=== PATIENT | female | born 1930 | race American Indian/Alaskan Native ===

== ENCOUNTER 2018-01-10 22:28 | Emergency (ER) | payer MEDICAID, MEDICARE, OTHER ==
[2018-01-10 22:51] VITALS: BMI 24.5
[2018-01-10 23:08] VITALS: TEMP 98.4
--- NOTE | 2018-01-10 23:16 | ED PDOC ---
Arrival/HPI - General Chief Complaint: Dizziness/Lightheaded Time Seen by Provider: 01/10/18 22:49 Historian: Patient - History of Present Illness Narrative History of Present Illness (Text): 01/10/18 23:19 An 87 year old female, whose past medical history includes hypertension, hypercholesterolemia and cataracts in bilateral eyes, presents to the emergency department complaining of dizziness. Patient reports dizziness began when she woke up from a nap around 21:00. Patient reports she feels like she is falling. Patient called her daughter, who brought her to the emergency department. Patient denies any other complaints at this time. Medications: Metoprolol, Lasix, hydrochlorothiazide Time/Duration: 1-3 hours Symptom Onset: Sudden Symptom Course: Unchanged Activities at Onset: Rest Context: Home Past Medical History - Provider Review Nursing Documentation Reviewed: Yes - Infectious Disease Hx of Infectious Diseases: None - Cardiac Hx Hypertension: Yes - Musculoskeletal/Rheumatological Hx Arthritis: Yes Hx Osteoporosis: Yes - Gastrointestinal Hx Diverticulitis: Yes - Psychiatric Hx Substance Use: No - Surgical History Other/Comment: HEMORRHOIDECTOMY - Suicidal Assessment Feels Threatened In Home Enviroment: No Family/Social History - Physician Review Nursing Documentation Reviewed: Yes Family/Social History: No Known Family HX Smoking Status: Never Smoked Hx Alcohol Use: No Hx Substance Use: No Allergies/Home Meds Allergies/Adverse Reactions: Allergies No Known Allergies Allergy (Verified 02/15/17 17:41) Home Medications: Home Meds Medication Instructions Recorded Confirmed Calcium + D 500 mg-125 Iu 1 tab PO DAILY 04/03/14 02/15/17 Furosemide 1 tab PO DAILY 04/03/14 02/15/17 Gabapentin 150 mg PO BID 04/03/14 02/15/17 Rosuvastatin Calcium [Crestor] 1 tab PO DAILY 04/03/14 02/15/17 Valsartan [Diovan] 1 tab PO DAILY 04/03/14 02/15/17 Ferrous Sulfate 325 mg PO DAILY 02/15/17 02/15/17 Risedronate Sodium [Actonel] 150 mg PO WM 02/15/17 02/15/17 Review of Systems - Physician Review All systems were reviewed & negative as marked: Yes - Review of Systems Constitutional: absent: Fevers Neurological: Dizziness Physical Exam Vital Signs Reviewed: Yes Vital Signs Temp Pulse Resp BP Pulse Ox 01/11/18 01:06 64 18 159/76 H 98 01/10/18 23:08 98.4 F 64 18 144/88 99 Temperature: Afebrile Blood Pressure: Normal Pulse: Regular Respiratory Rate: Normal Appearance: Positive for: Well-Appearing, Non-Toxic, Comfortable Pain Distress: None Mental Status: Positive for: Alert and Oriented X 3 - Systems Exam Head: Present: Atraumatic, Normocephalic Pupils: Present: Other (horizontal nystagmus) Extroacular Muscles: Present: EOMI Conjunctiva: Present: Normal Mouth: Present: Moist Mucous Membranes Neck: Present: Normal Range of Motion Respiratory/Chest: Present: Clear to Auscultation, Good Air Exchange. No: Respiratory Distress, Accessory Muscle Use Cardiovascular: Present: Murmurs (loud heart murmur 4/6, holosystolic, crescendo ) Abdomen: Present: Normal Bowel Sounds. No: Tenderness, Distention, Peritoneal Signs Back: Present: Normal Inspection Upper Extremity: Present: Normal Inspection. No: Cyanosis, Edema Lower Extremity: Present: Normal Inspection. No: Edema Neurological: Present: GCS=15, CN II-XII Intact, Speech Normal Skin: Present: Warm, Dry, Normal Color. No: Rashes Psychiatric: Present: Alert, Oriented x 3, Normal Insight, Normal Concentration Medical Decision Making ED Course and Treatment: 01/10/18 23:12 Impression: An 87 year old female with dizziness. Differential Diagnosis included but are not limited to: vertigo Plan: -- EKG -- CT head -- Chest X-ray -- labs -- Urinalysis -- Antivert -- Reassess and disposition Prior Visits: Notes and results from previous visits were reviewed. Patient was last seen in the emergency department on 02/15/17 for evaluation of headache. Progress Notes: EKG: Ordered, reviewed, and independently interpreted the EKG. Rate : 67 BPM Rhythm : NSR Interpretation : 1st degree block 01/11/18 01:39 Chest X-ray- No active disease, as read by me. 01/11/18 02:42 CT Head Without Intravenous Contrast FINDINGS: Brain:Periventricular white matter disease compatible with chronic small vessel ischemic change. There is intracerebral atherosclerosis.No acute intra or extra-axial hemorrhage. No mass or midline shift. Clear sinuses. No calvarial fracture. IMPRESSION: No intracranial hemorrhage. Dictated and Authenticated by: Tsering Plascencia MD 01/11/2018 2:41 AM Eastern Time ([place] & [place]) 01/11/18 02:43 On re-evaluation, patient feels better and is in no acute distress. I have discussed the results and plan with the patient, who expresses understanding. Patient in agreement with plan to be discharged home. Patient is stable for discharge. Patient was instructed to follow up with physician or return if symptoms worsen or new concerning symptoms arise. - Lab Interpretations Lab Results: 01/10/18 23:29 01/10/18 23:29 Lab Results 01/10/18 23:57: Urine Color Straw, Urine Appearance Sl cloudy, Urine pH 7.0, Ur Specific [place] 1.010, Urine Protein Negative, Urine Glucose (UA) Negative, Urine Ketones Negative, Urine Blood Negative, Urine Nitrate Negative, Urine Bilirubin Negative, Urine Urobilinogen 0.2, Ur Leukocyte Esterase Moderate H, Urine RBC 0 - 2, Urine WBC 2 - 5, Ur Epithelial Cells 0 - 2, Urine Bacteria Rare 01/10/18 23:29: Sodium 139, Potassium 3.9, Chloride 101, Carbon Dioxide 30, Anion Gap 12, BUN 16, Creatinine 0.7, Est GFR ( Amer) > 60, Est GFR (Non- Af Amer) > 60, Random Glucose 101, Calcium 10.2, Total Bilirubin 0.3, AST 42 H, ALT 25, Alkaline Phosphatase 69, Lactate Dehydrogenase 433, Total Creatine Kinase 84, Troponin I 0.01, Total Protein 7.0, Albumin 3.7, Globulin 3.3, Albumin/Globulin Ratio 1.1 01/10/18 23:29: PT 13.7 H, INR 1.20 H 01/10/18 23:29: WBC 6.3, RBC 3.88, Hgb 10.9 L, Hct 32.3 L, MCV 83.2, MCH 28.1, MCHC 33.7, RDW 14.8 H, Plt Count 239, MPV 8.1, Gran % 70.8 H, Lymph % (Auto) 22.8, [place] % (Auto) 4.0, Eos % (Auto) 2.1, Baso % (Auto) 0.3, Gran # 4.44, Lymph # (Auto) 1.4, [place] # (Auto) 0.3, Eos # (Auto) 0.1, Baso # (Auto) 0.02 I have reviewed the lab results: Yes - RAD Interpretation Radiology Orders: 01/10/18 23:07 HEAD W/O CONTRAST [CT] Stat CHEST PORTABLE [RAD] Stat - EKG Interpretation Interpreted by ED Physician: Yes Type: 12 lead EKG - Medication Orders Current Medication Orders: Discontinued Medications Meclizine HCl (Antivert) 25 mg PO STAT STA Stop: 01/10/18 23:10 Last Admin: 01/10/18 23:37 Dose: 25 mg - PA / DIRECTOR OF SOFTWARE ENGINEERING / Resident Statement MD/DO has reviewed & agrees with the documentation as recorded. - Scribe Statement The provider has reviewed the documentation as recorded by the Gary Shepherd Provider Scribe Attestation: All medical record entries made by the Gary were at my direction and personally dictated by me. I have reviewed the chart and agree that the record accurately reflects my personal performance of the history, physical exam, medical decision making, and the department course for this patient. I have also personally directed, reviewed, and agree with the discharge instructions and disposition. Disposition/Present on Arrival - Present on Arrival Any Indicators Present on Arrival: No History of DVT/PE: No History of Uncontrolled Diabetes: No Urinary Catheter: No History of Decub. Ulcer: No History Surgical Site Infection Following: None - Disposition Have Diagnosis and Disposition been Completed?: Yes Diagnosis: Vertigo Disposition: HOME/ ROUTINE Disposition Time: 02:47 Patient Plan: Discharge Patient Problems: Current Active Problems Problem Status Onset Vertigo Acute Condition: GOOD Discharge Instructions (ExitCare): Vertigo (a Type of Dizziness) (DC) Additional Instructions: Mrs Flores..... Please get up and lay down slowly, try to avoid rapid head motions. Return to us if worse. Use the Antivert 3 times a day. Follow up with your doctor later this week. Fritz- Dr. Dayne Chun Prescriptions: Meclizine [Antivert] 12.5 mg PO TID #30 tab Forms: [employer] (Moroccan)
[2018-01-10 23:53] LABS: BASO # 0.02 K/mm3 (0.0-2.0); BASO % 0.3 % (0.0-3.0); EOS # 0.1 (0.0-0.7); EOS % 2.1 % (1.5-5.0); GRAN # 4.44 (1.4-6.5); GRAN % 70.8 % (50.0-68.0); HEMOGLOBIN 10.9 g/dL (12.0-16.0); LYMPH # 1.4 (1.2-3.4); LYMPH % 22.8 % (22.0-35.0); MEAN CELL VOLUME 83.2 fl (80.0-105.0); MEAN CORPUSCULAR HEMOGLOBIN 28.1 pg (25.0-35.0); MEAN CORPUSCULAR HGB CONC 33.7 g/dl (31.0-37.0); MEAN PLATELET VOLUME 8.1 fl (7.0-11.0); MONO # 0.3 (0.1-0.6); RBC 3.88 10^6/uL (3.5-6.1); RED CELL DISTRIBUTION WIDTH 14.8 % (11.5-14.5); WHITE BLOOD COUNT 6.3 10^3/ul (4.5-11.0)
[2018-01-10 23:55] LABS: INR 1.2 (0.93-1.08); PROTHROMBIN TIME 13.7 SECONDS (9.4-12.5)
[2018-01-11 00:02] LABS: ALB/GLOB RATIO 1.1 (1.1-1.8); ALBUMIN 3.7 g/dL (3.0-4.8); ALT/SGPT 25 U/L (7-56); AST/SGOT 42 U/L (14-36); BLOOD UREA NITROGEN 16 mg/dL (7-21); CALCIUM 10.2 mg/dL (8.4-10.5); GFR AFRICAN-AMERICAN > 60; GFR NON-AFRICAN AMERICAN > 60
[2018-01-11 00:07] LABS: URINE BILIRUBIN NEGATIVE (NEGATIVE); URINE BLOOD NEGATIVE (NEGATIVE); URINE GLUCOSE (UA) NEGATIVE (NEGATIVE); URINE LEUKOCYTE ESTERASE MODERATE Leu/uL (NEGATIVE); URINE PROTEIN NEGATIVE mg/dL (<30 mg/dL); URINE UROBILINOGEN 0.2 E.U./dL (<1 E.U./dL)
[2018-01-11 00:10] LABS: URINE APPEARANCE SL CLOUDY (CLEAR); URINE COLOR STRAW (YELLOW)
[2018-01-11 00:13] LABS: TROPONIN I 0.01 ng/mL
[2018-01-11 00:38] LABS: URINE RBC 0 - 2 /hpf (0-2)
[2018-01-11 00:39] LABS: URINE EPITHELIAL CELLS 0 - 2 /hpf (0-5)
[2018-01-11 00:40] LABS: URINE BACTERIA RARE (NEG)
[2018-01-11 03:09] VITALS: BP 154/90; PULSE 66; RESP 17; O2SAT 99
--- NOTE | 2018-01-11 08:29 | CT ---
PROCEDURE: CT HEAD WITHOUT CONTRAST. HISTORY: DIZZY COMPARISON: None available. TECHNIQUE: Axial computed tomography images were obtained through the head/brain without intravenous contrast. Radiation dose: Total exam DLP = 783 mGy-cm. This CT exam was performed using one or more of the following dose reduction techniques: Automated exposure control, adjustment of the mA and/or kV according to patient size, and/or use of iterative reconstruction technique. FINDINGS: HEMORRHAGE: No intracranial hemorrhage. BRAIN: No mass effect or edema. No atrophy or chronic microvascular ischemic changes. VENTRICLES: Unremarkable. No hydrocephalus. CALVARIUM: Unremarkable. PARANASAL SINUSES: Unremarkable as visualized. No significant inflammatory changes. MASTOID AIR CELLS: Unremarkable as visualized. No inflammatory changes. OTHER FINDINGS: The report concurs with the preliminary [facility] report IMPRESSION: No acute findings
--- NOTE | 2018-01-11 08:58 | RAD ---
HISTORY: Weak and Dizzy COMPARISON: No prior. FINDINGS: LUNGS: No active pulmonary disease. PLEURA: No significant pleural effusion identified, no pneumothorax apparent. CARDIOVASCULAR: Minimal cardiomegaly. Mild tortuosity and ectasia of the thoracic aorta OSSEOUS STRUCTURES: Thoracic spondylosis. Bilateral shoulder arthrosis. High-riding humeral heads VISUALIZED UPPER ABDOMEN: Normal. OTHER FINDINGS: None. IMPRESSION: No acute cardiopulmonary pathology suspect Bilateral shoulder arthrosis - psoriatic arthrosis is 1 consideration. Concomitant rotator cuff chronic pathology also bilaterally suspect.
--- NOTE | 2018-01-12 11:58 | CARD ---
APPROVED REPORT EKG Measurement Heart [id number] <Conclusion> Rythm Probably Atrial Fibrillation/Multifocal Rythm with MT Prolonged? Nonspecific ST and T wave abnormality Abnormal ECG
--- NOTE | 2018-01-13 09:37 | CARD ---
APPROVED REPORT EKG Measurement Heart [id number] 262P [id number] <Conclusion> Sinus rhythm with sinus arrhythmia with 1st degree AV block Poor R Progression V1-V3. Non Specific ST_T Changes.
== END 2018-01-11 03:10 | disposition home or self-care (01) ==
LOC: ED 22:28
DX: R42 Dizziness and giddiness (principal); E78.00 Pure hypercholesterolemia, unspecified; I10 Essential (primary) hypertension